=== PATIENT | male | born 1995 | race Two or more races ===

== ENCOUNTER 2019-03-15 17:14 | Emergency (ER) | payer BC ==
[~2019-03-15] VITALS: Ht 167.6 cm; Wt 95.3 kg
[2019-03-15 17:42] LABS: BASO # 0.1 x10^3/uL (0.0-0.2); BASO % 1 % (0-3); EOS # 0.1 x10^3/uL (0.0-0.7); EOS % 2 % (0-3); HEMATOCRIT 40.4 % (39.0-53.0); HEMOGLOBIN 13.5 g/dL (13.0-17.5); LYMPH # 3.6 x10^3/uL (1.0-4.8); LYMPH % 49 % (24-48); MEAN CORPUSCULAR HEMOGLOBIN 29 pg (25-35); MEAN CORPUSCULAR HGB CONC 33 g/dL (31-37); MEAN CORPUSCULAR VOLUME 87 fL (79-100); MONO # 0.7 x10^3/uL (0.0-1.1); MONO % 9 % (0-9); NEUT # 2.9 x10^3/uL (1.8-7.7); NEUT % 39 % (31-73); PLATELET COUNT 372 x10^3/uL (140-400); RED BLOOD COUNT 4.66 x10^6/uL (4.30-5.70); RED CELL DISTRIBUTION WIDTH 14.7 % (11.5-14.5); WHITE BLOOD COUNT 7.4 x10^3/uL (4.0-11.0)
[2019-03-15 17:51] LABS: CALCIUM 9.4 mg/dL (8.5-10.1); CREATININE 0.9 mg/dL (0.7-1.3); GFR 103.7; POTASSIUM 4.3 mmol/L (3.5-5.1)
[2019-03-15 17:56] LABS: ALBUMIN 2.8 g/dL (3.4-5.0); ALBUMIN/GLOBULIN RATIO 0.5 (1.0-1.7); MAGNESIUM 2.2 mg/dL (1.8-2.4); TOTAL BILIRUBIN 0.6 mg/dL (0.2-1.0); TOTAL PROTEIN 8.4 g/dL (6.4-8.2)
[2019-03-15] MEDS ORDERED: IV NORMAL SALINE 1000ML BAG 1,000 ML IV ONE (18:00)
[2019-03-15 18:16] LABS: BILIRUBIN,URINE SMALL (NEG); CLARITY,URINE CLOUDY; NITRITE,URINE NEGATIVE (NEG); PROTEIN,URINE 30 mg/dL (NEG-TRACE); UROBILINOGEN,URINE 0.2 mg/dL (0.2 mg/dL)
[2019-03-15 18:17] LABS: COLOR,URINE DK YELLOW
--- NOTE | 2019-03-15 18:18 | PHYS DOC ---
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 Patient states on that date he was evaluated at urgent care in [place] where he lives for flulike symptoms, nausea, vomiting, and intermittent right upper quadrant pain. He states he was prescribed some medications at that time and has been taking them as directed. Patient reports a history of heavy alcohol use in the past but has been sober for 17 months at this time. He currently denies any pain. He states that he has had intermittent upper quadrant pain, cough, nausea, and vomiting. Patient states he is only vomited once in the last 24 hours. He denies any alleviating or exacerbating factors. (ABDIRAHMAN VASQUEZ APRN) Review of Systems Review of Systems Constitutional: Denies fever or chills [] Eyes: Denies change in visual acuity, redness, or eye pain [] HENT: Denies nasal congestion or sore throat [] Respiratory: Denies wheezing, or shortness of breath; reports dry cough Cardiovascular: No additional information not addressed in HPI [] GI: see HPI : Denies dysuria or hematuria [] Musculoskeletal: Denies back pain or joint pain [] Integument: Denies rash or skin lesions [] Neurologic: Denies headache Complete systems were reviewed and found to be within normal limits, except as documented in this note. (ABDIRAHMAN VASQUEZ APRN) Current Medications Current Medications Current Medications Medications (Trade) Dose Ordered Sig/John Start Time Stop Time Status Last Admin Dose Admin Ibuprofen (Motrin) 600 mg 1X ONCE 03/15/19 22:45 03/15/19 22:46 DC 03/15/19 22:45 600 MG Sodium Chloride 1,000 ml @ 1,000 mls/hr 1X ONCE 03/15/19 18:00 03/15/19 18:59 DC 03/15/19 18:00 1,000 MLS/HR (ЮЛИЯ HAGEN MD) Allergies Allergies Allergies Coded Allergies Type Severity Reaction Last Updated Verified No Known Drug Allergies 03/15/19 No (ЮЛИЯ HAGEN MD) Physical Exam Physical Exam Constitutional: Well developed, well nourished, no acute distress, non-toxic appearance. [] HENT: Normocephalic, atraumatic, bilateral external ears normal, oropharynx moist, no oral exudates, nose normal. [] Eyes: PERRLA, EOMI, conjunctiva normal, no discharge. [] Neck: Normal range of motion, no stridor. [] Cardiovascular:Heart rate regular rhythm, no murmur [] Lungs & Thorax: Bilateral breath sounds clear to auscultation [] Abdomen: Bowel sounds normal, soft, RUQ tenderness, no rebound tenderness, no guarding, no masses, no pulsatile masses. [] Skin: Warm, dry, no erythema, no rash. [] Back: No tenderness Extremities: No cyanosis, ROM intact, no edema. [] Neurologic: Alert and oriented X 3, no focal deficits noted. [] Psychologic: Affect normal, judgement normal, mood normal. [] (ABDIRAHMAN VASQUEZ APRN) Current Patient Data Vital Signs Vital Signs Date Time Temp Pulse Resp B/P (MAP) Pulse Ox O2 Delivery O2 Flow Rate FiO2 03/15/19 22:59 98 14 118/83 (95) 96 Room Air 03/15/19 17:30 98.5 98.5 (ЮЛИЯ HAGEN MD) Lab Values Laboratory Tests Test 03/15/19 17:28 03/15/19 17:33 Urine Collection Type Unknown Urine Color Dk yellow Urine Clarity Cloudy Urine pH 6.0 Urine Specific [place] 1.025 Urine Protein 30 mg/dL (NEG-TRACE) Urine Glucose (UA) Negative mg/dL (NEG) Urine Ketones (Stick) Trace mg/dL (NEG) Urine Blood Negative (NEG) Urine Nitrite Negative (NEG) Urine Bilirubin Small (NEG) Urine Urobilinogen Dipstick 0.2 mg/dL (0.2 mg/dL) Urine Leukocyte Esterase Trace (NEG) Urine RBC 0 /HPF (0-2) Urine WBC Occ /HPF (0-4) Urine Bacteria 0 /HPF (0-FEW) Urine Mucus Marked /LPF White Blood Count 7.4 x10^3/uL (4.0-11.0) Red Blood Count 4.66 x10^6/uL (4.30-5.70) Hemoglobin 13.5 g/dL (13.0-17.5) Hematocrit 40.4 % (39.0-53.0) Mean Corpuscular Volume 87 fL (79-100) Mean Corpuscular Hemoglobin 29 pg (25-35) Mean Corpuscular Hemoglobin Concent 33 g/dL (31-37) Red Cell Distribution Width 14.7 % (11.5-14.5) H Platelet Count 372 x10^3/uL (140-400) Neutrophils (%) (Auto) 39 % (31-73) Lymphocytes (%) (Auto) 49 % (24-48) H Monocytes (%) (Auto) 9 % (0-9) Eosinophils (%) (Auto) 2 % (0-3) Basophils (%) (Auto) 1 % (0-3) Neutrophils # (Auto) 2.9 x10^3/uL (1.8-7.7) Lymphocytes # (Auto) 3.6 x10^3/uL (1.0-4.8) Monocytes # (Auto) 0.7 x10^3/uL (0.0-1.1) Eosinophils # (Auto) 0.1 x10^3/uL (0.0-0.7) Basophils # (Auto) 0.1 x10^3/uL (0.0-0.2) Segmented Neutrophils % 48 % (35-66) Band Neutrophils % 3 % (0-9) Lymphocytes % 37 % (24-48) Atypical Lymphocytes % (Manual) 6 % (0-0) H Monocytes % 4 % (0-10) Eosinophils % 2 % (0-5) Toxic Vacuolation Slight Platelet Estimate Adequate (ADEQUATE) Large Platelets Few Giant Platelets Occ Sodium Level 138 mmol/L (136-145) Potassium Level 4.3 mmol/L (3.5-5.1) Chloride Level 99 mmol/L (98-107) Carbon Dioxide Level 31 mmol/L (21-32) Anion Gap 8 (6-14) Blood Urea Nitrogen 9 mg/dL (8-26) Creatinine 0.9 mg/dL (0.7-1.3) Estimated GFR (Cockcroft-Gault) 103.7 BUN/Creatinine Ratio 10 (6-20) Glucose Level 108 mg/dL (70-99) H Calcium Level 9.4 mg/dL (8.5-10.1) Magnesium Level 2.2 mg/dL (1.8-2.4) Total Bilirubin 0.6 mg/dL (0.2-1.0) Aspartate Amino Transferase (AST) 98 U/L (15-37) H Alanine Aminotransferase (ALT) 143 U/L (16-63) H Alkaline Phosphatase 407 U/L (46-116) H Total Protein 8.4 g/dL (6.4-8.2) H Albumin 2.8 g/dL (3.4-5.0) L Albumin/Globulin Ratio 0.5 (1.0-1.7) L Lipase 173 U/L (73-393) Acetaminophen Level < 2.0 mcg/ml (10-30) L Acetaminophen Last Dose Date Unk Acetaminophen Last Dose Time Unk Laboratory Tests 03/15/19 17:33 Laboratory Tests 03/15/19 17:33 (ЮЛИЯ HAGEN MD) EKG EKG [] (ABDIRAHMAN VASQUEZ APRN) Radiology/Procedures Radiology/Procedures [] (ABDIRAHMAN VASQUEZ APRN) Course & Med Decision Making Course & Med Decision Making Pertinent Labs and Imaging studies reviewed. (See chart for details) 1909- Report to Dr. Hagen at this time. Advised of elevated LFT's. CBC unr emarkable, UA small bilirubin, trace ketones. Pending ultrasound report. [] (ABDIRAHMAN VASQUEZ APRN) Course & Med Decision Making I received signout from PEDRO LUIS at around 6 PM when she was leaving actually 7 PM. Ultrasound is currently pending patient was referred from urgent care due to elevated LFTs. I read the final ultrasound report fatty liver is noted there is no gallbladder abnormality I reevaluated the patient he did have mild tachycardia he does take a prescription strength amphetamine and he tells me he always has had a fast heart rate that is normal for him is actually about 100 at rest and goes up to about 115 when he sits up for me to listen to his lungs lungs sound clear chest x-ray negative acute by my read patient is having no shortness of breath does have a dry, hacking cough which she says has been present for 3 weeks. He hasn't been having intermittent nausea and vomiting during that timeframe as well. Currently reexam of the abdomen reveals no tenderness. I offered admission due to the low-grade fever and the mild tachycardia as well as persistent nausea and vomiting however he declined he is in [employer] he is here visiting with his parents we agreed on antidiabetic therapy antibiotics for 3 weeks of cough close follow-up with primary care doctor for recheck of LFTs and come back any time for any new or concerning symptoms. He is agreeable to that plan (ЮЛИЯ HAGEN MD) Dragon Disclaimer Dragon Disclaimer This electronic medical record was generated, in whole or in part, using a voice recognition dictation system. (ABDIRAHMAN VASQUEZ APRN) Departure Departure Impression: Primary Impression: Elevated LFTs Disposition: HOME, SELF-CARE Condition: STABLE Referrals: NO PCP (PCP) Scripts Ondansetron (ONDANSETRON ODT) 4 Mg Tab.rapdis 1 TAB PO PRN Q6-8HRS PRN for NAUSEA/VOMITING, #16 TAB Prov: ЮЛИЯ HAGEN MD 03/15/19 Azithromycin (AZITHROMYCIN TABLET) 250 Mg Tablet 1 PKG PO UD, #6 TAB Prov: ЮЛИЯ HAGEN MD 03/15/19 ABDIRAHMAN VASQUEZ APRN Mar 15, 2019 18:18 ЮЛИЯ HAGEN MD Mar 16, 2019 00:34
[2019-03-15 18:27] LABS: RBC,URINE 0 /HPF (0-2)
[2019-03-15 18:29] LABS: BACTERIA,URINE 0 /HPF (0-FEW); WBC,URINE OCC /HPF (0-4)
[2019-03-15 18:45] LABS: % ATYL 6 % (0-0); % BANDS 3 % (0-9); % EOS 2 % (0-5); % LYMPHS 37 % (24-48); % MONOS 4 % (0-10); % SEGS 48 % (35-66); PLT ESTIMATE ADEQUATE (ADEQUATE)
[2019-03-15 18:47] LABS: TOXIC VACUOLATION SLIGHT
[2019-03-15 19:35] LABS: ACETAMIN < 2.0 mcg/ml (10-30)
--- NOTE | 2019-03-15 22:09 | RAD ---
Exam: Ultrasound abdomen limited Indication: Intermittent right upper quadrant pain Technique: Real-time grayscale and color Doppler images of the right upper quadrant were obtained by the department drafter landscape. Comparisons: None FINDINGS: Increased echogenicity of the liver. No focal hepatic lesions identified. Gallbladder is normal in appearance. No gallstones or pericholecystic inflammatory changes. Common bile duct measures 5 mm. Right Kidneys is rotated. Kidney measures 9.9 cm in length. No hydronephrosis. IMPRESSION: 1. Hepatic steatosis 2. Normal sonographic appearance of the gallbladder. No evidence for acute cholecystitis. 3. No right-sided hydronephrosis. Electronically signed by: Saravanan Marte MD (03/15/2019 10:06 PM) [id number]
[2019-03-15] MEDS ORDERED: IBUPROFEN 200 MG TABLET. PO ONE (22:45)
[2019-03-15 22:59] VITALS: BP 118/83
[2019-03-15] MEDS ORDERED: AZIT250T6 PO (23:08)
[2019-03-15] MEDS ORDERED: ONDA4TAB12 PO (23:08)
--- NOTE | 2019-03-16 04:36 | RAD ---
Study: PORTABLE CHEST 1V Indication: Cough. Fever. Comparison: None. Findings: Low lung volumes. No lobar infiltrate, layering effusion or pneumothorax. Unremarkable cardiomediastinal silhouette and hilar structures. Nipple rings noted. Impression: Unremarkable radiographic appearance of the chest. Electronically signed by: VALDEMAR SCOTT MD (03/16/2019 4:33 AM) [id number]
== END 2019-03-15 23:18 | disposition home or self-care (01) ==
LOC: ER 17:14
DX: R79.89 Other specified abnormal findings of blood chemistry (principal); R10.11 Right upper quadrant pain; R11.2 Nausea with vomiting, unspecified; R05 Cough; F31.9 Bipolar disorder, unspecified
CPT/HCPCS: 36415; 71045; 76705; 80053; 80329; 81001; 83690; 83735; 85007; 85025; 87086; 96360; 96361; 99285; J7030; G0480